=== PATIENT | female | born 1945 | race Caucasian/White ===

== ENCOUNTER → 2016-05-08 | Outpatient (CLI) | payer OTHER ==
--- NOTE | 2016-05-08 13:24 | DX ---
Chest, Two Views at 1203 hours History: J 42, bronchitis, J 45.909, asthma. Comparison: May 2012 Findings: Cardiac silhouette is within normal range. Mild bilateral peribronchial thickening. No pneu monia, congestive heart failure, pleural effusion, or pneumothorax. Impression: 1. Bronchitis. 2. No definite focal pneumonia.
== END ==
LOC: FIMAGING 11:50
PROVIDERS: ATTEND Physician Assistant
DX: J40 Bronchitis, not specified as acute or chronic (principal)

== ENCOUNTER → 2017-02-09 | Outpatient (CLI) | payer OTHER | LOC: FIMAGING 10:37 → EDSTATUS 10:38 | PROVIDERS: ATTEND Physician Assistant | DX: M53.3 Sacrococcygeal disorders, not elsewhere classified (principal); M25.511 Pain in right shoulder ==

== ENCOUNTER → 2017-05-13 | Outpatient (CLI) | payer OTHER | LOC: FIMAGING 12:41 | PROVIDERS: ATTEND Physician Assistant | DX: Z12.31 Encounter for screening mammogram for malignant neoplasm of breast (principal); Z13.820 Encounter for screening for osteoporosis; M53.3 Sacrococcygeal disorders, not elsewhere classified; Z78.0 Asymptomatic menopausal state; Z82.62 Family history of osteoporosis; Z79.899 Other long term (current) drug therapy ==

== ENCOUNTER → 2018-05-04 | Outpatient (CLI) | payer OTHER | LOC: FIMAGING 11:23 | PROVIDERS: ATTEND Physician Assistant | DX: J40 Bronchitis, not specified as acute or chronic (principal) ==

== ENCOUNTER → 2018-09-24 | Outpatient (CLI) | payer OTHER | LOC: FIMAGING 09:58 ==

== ENCOUNTER → 2018-09-29 | Outpatient (CLI) | payer OTHER | LOC: FIMAGING 09:49 ==